=== PATIENT | male | born 1960 | race Caucasian/White ===

== ENCOUNTER → 2020-09-13 10:01 | Outpatient (CLI) | payer OTHER, SELFPAY ==
--- NOTE | 2020-09-13 | DI.NM.S_ITS ---
PROCEDURE: NM IGNACIO PERF SPECT REST & STR Rest and exercise myocardial perfusion SPECT with gated imaging and ejection fraction RADIOPHARMACEUTICAL: 25.1 mCi Tc-99m sestamibi IV at rest and 26.5 mCi Tc-99m sestamibi IV at peak exercise. A two day-protocol was performed. INDICATIONS: Other chest pain TECHNIQUE: Radiopharmaceutical was injected at peak stress test, and also at rest. SPECT images were obtained. SPECT myocardial perfusion images were displayed in short axis, horizontal long axis, and vertical long axis views. Gated images were reviewed using [employer] software. COMPARISON: None. CARDIAC STRESS: A standard Vin treadmill exercise tolerance test was performed by the patient under the supervision of an attending staff. The patient exercised for 5 minutes and 46 seconds; functional aerobic impairment (VANESSA) is +27%. Hemodynamic data: There is normal heart rate response to exercise stress. Patient achieved 93% of maximum predicted heart rate at peak exercise. Hypertension at rest (BP 142/100mmHg) and max BP is 210/100mg. Symptoms: Patient denied chest pain during exercise. EKG: No diagnostic EKG changes of ischemia; no ectopy. FINDINGS: Raw data: There is good myocardial labeling by radiotracer. No significant motion artifacts. Left ventricle function: Gated images demonstrate normal left ventricle wall thickening. No segmental wall motion abnormality. No transient ischemic dilation; TID is 0.81 (normal less than 1.3). The left ventricle resting end-diastolic volume is 129 mL. Left ventricle stress ejection fraction is 69%; normal values are above 45%. Myocardial perfusion: There is a fixed inferior wall defect that resolves with prone imaging, suggesting artifact than true ischemia or infarction. IMPRESSION: Low risk, probably normal treadmill nuclear stress test 1) No perfusion evidence of ischemia or infarction. 2) Normal left ventricular size, wall motion, and systolic function (EF post stress 69%). 3) No ECG evidence of ischemia. 4) No angina during the study. 5) Reduced exercise tolerance (7.0 METs, VANESSA +27%). Target heart rate achieved. 6) Hypertensive response to exercise. Hypertension at rest (BP 142/100mmHg) and max BP was 210/100mg. 7) No prior nuclear stress test available for comparison. Dictated by: Judith Darling MD on 09/14/2020 at 16:39 Approved by: Judith Darling MD on 09/14/2020 at 16:53
== END ==
PROVIDERS: PCP Internal Medicine; Referring Provider Internal Medicine; Visit Provider Internal Medicine
DX: R07.89 Other chest pain (principal); R06.09 Other forms of dyspnea
CPT/HCPCS: 78452; 93017; A9502

== ENCOUNTER 2021-04-25 12:34 | Emergency (ER) | payer OTHER, SELFPAY ==
--- NOTE | 2021-04-25 13:31 | DI.RAD.S_ITS ---
PROCEDURE: XR CHEST 2V INDICATIONS: shortness of breath TECHNIQUE: 2 views of the chest were acquired. COMPARISON: None. FINDINGS: Surgical changes and devices: None. Lungs and pleura: Lungs are clear. No pleural effusions or pneumothorax. Mediastinum: Mediastinal contours are normal. Heart size is normal. Bones and chest wall: No suspicious bony abnormalities. Soft tissues appear unremarkable. IMPRESSION: No acute pulmonary process. Dictated by: Nae Ochoa M.D. on 04/25/2021 at 14:23 Approved by: Nae Ochoa M.D. on 04/25/2021 at 14:27
[2021-04-25 13:32] VITALS: BP 168/108; PULSE 94; RESP 22; TEMP 37.1; O2SAT 96
[2021-04-25 13:44] LABS: Add Manual Diff / Slide Review NO; Basophils Absolute Auto 100 /uL (0-100); Basophils Percent Auto 0.8 % (0-2); Eosinophils Absolute Auto 300 /uL (0-450); Hematocrit 45.3 % (41-53); Hemoglobin 15.4 g/dL (13.5-17.5); Lymphocytes Absolute Auto 1400 /uL (1100-4500); Lymphocytes Percent Auto 21.2 % (25-40); Mean Corpuscular HGB Conc 33.9 % (30-36); Mean Corpuscular Volume 97.3 fL (80-100); Monocytes Absolute Auto 1300 /uL (0-900); Neutrophils Absolute Auto 3500 /uL (1500-7000); Platelet Count 191 X10^3/uL (150-400); Red Blood Cell Count 4.66 X10^6/uL (4.5-5.9); Red Cell Distribution Width 13.1 % (11.6-14.8); White Blood Cell Count 6.6 X10^3/uL (4.5-11.0)
[2021-04-25 13:59] LABS: Alanine Aminotransferase 72 IU/L (<50); Albumin 4.2 g/dL (3.5-5.0); Albumin Globulin Ratio 1.2 (1.0-2.8); Alkaline Phosphatase 85 U/L (38-126); Aspartate Aminotransferase 80 IU/L (17-59); BUN Creatinine Ratio 12.7 (6-22); Blood Urea Nitrogen 13 mg/dL (9-20); Calcium 9.1 mg/dL (8.4-10.2); Carbon Dioxide 29 mmol/L (22-32); Chloride 104 mmol/L (98-107); Estimated Glomerular Filt Rate > 60.0 mL/min (>60); Globulin 3.4 g/dL (1.7-4.1); Glucose 110 mg/dL (80-110); HEMOLYSIS < 15 (0-50); Potassium 4.1 mmol/L (3.4-5.1); Sodium 140 mmol/L (137-145); Total Protein 7.6 g/dL (6.3-8.2)
[2021-04-25 14:33] LABS: Adenovirus Not Detected (Not Detect); B. parapertussis Not Detected (Not Detecte); Bordetella pertussis Not Detected (Not Detecte); Chlamydophila pneumoniae Not Detected (Not Detect); Coronavirus 229E Not Detected (Not Detect); Coronavirus HKU1 Not Detected (Not Detect); Coronavirus NL 63 Not Detected (Not Detect); Coronavirus OC43 Not Detected (Not Detect); Human Metapneumovirus Not Detected (Not Detect); Human Rhinovirus/Enterovirus Not Detected (Not Detect); Influenza A Not Detected (Not Detect); Influenza B Not Detected (Not Detect); Mycoplasma pneumoniae Not Detected (Not Detect); Parainfluenza Virus 1 Not Detected (Not Detect); Parainfluenza Virus 2 Not Detected (Not Detect); Parainfluenza Virus 3 Not Detected (Not Detect); Parainfluenza Virus 4 Not Detected (Not Detect); Respiratory Syncytial Virus Not Detected (Not Detect); SARS- CoV-2 Not Detected (Not Detecte)
--- NOTE | 2021-04-25 16:18 | ED_ITS ---
HPI - URI/Sore Throat <CUONG Wolf - Last Filed: 04/25/21 20:46> General Chief Complaint: Upper Respiratory Symptoms Stated Complaint: coughing, loss of voice, RT eye hurts Time Seen by Provider: 04/25/21 16:18 Source: patient Mode of arrival: Ambulatory History of Present Illness HPI Narrative: 60-year-old male presents to the emergency department for 4 weeks of cough and congestion which has been worsening. Patient reports for the first 3 weeks it was a dry cough and now it is turned into a productive cough with yellow/white sputum. Patient has a history of high blood pressure, he is not a smoker, no history of asthma, reports having orthopnea symptoms including elevated. Patient has lost his voice in the last 3 days and now has 3 days of right eye redness, discharge, he denies any trauma or foreign body to his right eye. He reports that his cough is his worst symptom, and it has been ongoing and quite bothersome. Related Data Previous Rx's Medication Instructions Recorded benzonatate 100 mg capsule 100 mg PO TID PRN #20 cap 04/25/21 Allergies Allergy/AdvReac Type Severity Reaction Status Date / Time No Known Drug Allergies Allergy Verified 04/25/21 16:46 Review of Systems <CUONG Wolf - Last Filed: 04/25/21 20:46> Review of Systems Narrative: General: denies fever, chills Head/Neck: denies headache, neck pain, denies any swallowing difficulty or throat pain Eyes: denies visual changes, eye pain Cardio: denies chest pain, palpitations, denies chest pressure, denies shortness of breath with activity Respiratory: denies shortness of breath, endorses frequent and bothersome cough, loss of voice, GI: denies abdominal pain, nausea, vomiting, or diarrhea : denies dysuria, hematuria MSK: denies joint pain, muscle weakness Skin: denies rash, itching Neuro: denies numbness, tingling Exam <CUONG Wolf - Last Filed: 04/25/21 20:46> Narrative Exam Narrative: Independently reviewed vitals signs and nursing notes. General: Awake, alert, nontoxic, no cardiorespiratory distress Head/Neck: Atraumatic, neck full range of motion Eyes: EOMI, conjunctiva normal Nose: nares patent, no rhinorrhea Mouth/Throat: moist mucus membranes, posterior pharynx normal, no oral lesions Cardio: Regular rate and rhythm, no peripheral edema Respiratory: respirations unlabored without wheezing, stridor, or rales. No ret ractions. Frequent cough, no sputum visualized, GI: Abdomen soft, nontender, obese MSK: Moves all extremities, neurovascularly intact Skin: Normal capillary refill, no rash Neuro: Normal speech and cognition, normal gait Initial Vital Signs Initial Vital Signs: Vital Signs Temperature 98.8 F 04/25/21 13:32 Pulse Rate 94 H 04/25/21 13:32 Respiratory Rate 22 04/25/21 13:32 Blood Pressure 168/108 H 04/25/21 13:32 Pulse Oximetry 96 04/25/21 13:32 <Rafat Anderson DO - Last Filed: 05/03/21 04:46> Initial Vital Signs Initial Vital Signs: Vital Signs Temperature 98.8 F 04/25/21 13:32 Pulse Rate 94 H 04/25/21 13:32 Respiratory Rate 22 04/25/21 13:32 Blood Pressure 168/108 H 04/25/21 13:32 Pulse Oximetry 96 04/25/21 13:32 Course <LOLITA WolfP - Last Filed: 04/25/21 20:46> Orders Ordered: Discontinued Medications Doxycycline Hyclate (Doxycycline Hyclate 100 Mg Tablet) 100 mg PO NOW ONE Stop: 04/25/21 16:40 Last Admin: 04/25/21 16:47 Dose: 100 mg Documented by: GABBY Guaifenesin/Dextromethorphan (Guaifenesin/Dm 200/20 Mg/10 Ml Udc) 10 ml PO NOW ONE Stop: 04/25/21 16:40 Last Admin: 04/25/21 16:51 Dose: 10 ml Documented by: GABBY Vital Signs Vital signs: Vital Signs - 8 hr 04/25/21 13:32 04/25/21 17:00 Temperature 98.8 F Pulse Rate 94 H 78 Respiratory Rate 22 20 Blood Pressure 168/108 H 157/97 H Pulse Oximetry 96 94 <Rafat Anderson DO - Last Filed: 05/03/21 04:46> Orders Ordered: Discontinued Medications Doxycycline Hyclate (Doxycycline Hyclate 100 Mg Tablet) 100 mg PO NOW ONE Stop: 04/25/21 16:40 Last Admin: 04/25/21 16:47 Dose: 100 mg Documented by: GABBY Guaifenesin/Dextromethorphan (Guaifenesin/Dm 200/20 Mg/10 Ml Udc) 10 ml PO NOW ONE Stop: 04/25/21 16:40 Last Admin: 04/25/21 16:51 Dose: 10 ml Documented by: GABBY Vital Signs Vital signs: Vital Signs - 8 hr 04/25/21 13:32 04/25/21 17:00 Temperature 98.8 F Pulse Rate 94 H 78 Respiratory Rate 22 20 Blood Pressure 168/108 H 157/97 H Pulse Oximetry 96 94 MDM - URI/Sore Throat <CUONG Wolf - Last Filed: 04/25/21 20:46> Lab Data Result diagrams: 04/25/21 13:31 04/25/21 13:31 Labs: Lab Results 04/25/21 04/25/21 04/25/21 Range/Units 13:31 13:31 13:31 WBC 6.6 (4.5-11.0) X10^3/uL RBC 4.66 (4.5-5.9) X10^6/uL Hgb 15.4 (13.5-17.5) g/dL Hct 45.3 (41-53) % MCV 97.3 (80-100) fL MCH 33.0 (26-34) PG MCHC 33.9 (30-36) % RDW 13.1 (11.6-14.8) % Plt Count 191 (150-400) X10^3/uL Neut % (Auto) 53.0 (50-75) % Lymph % (Auto) 21.2 L (25-40) % Story % (Auto) 20.0 H (3-14) % Eos % (Auto) 5.0 H (2-4) % Baso % (Auto) 0.8 (0-2) % Neut # (Auto) 3500 (5064-2637) /uL Lymph # (Auto) 1400 (4662-7863) /uL Story # (Auto) 1300 H (0-900) /uL Eos # (Auto) 300 (0-450) /uL Baso # (Auto) 100 (0-100) /uL Sodium 140 (137-145) mmol/L Potassium 4.1 (3.4-5.1) mmol/L Chloride 104 (98-107) mmol/L Carbon Dioxide 29 (22-32) mmol/L BUN 13 (9-20) mg/dL Creatinine 1.02 (0.66-1.25) mg/dL Estimated GFR > 60.0 (>60) mL/min BUN/Creatinine Ratio 12.7 (6-22) Glucose 110 (80-110) mg/dL Lactate Cancelled Calcium 9.1 (8.4-10.2) mg/dL Total Bilirubin 1.0 (0.2-1.3) mg/dL AST 80 H (17-59) IU/L ALT 72 H (<50) IU/L Alkaline Phosphatase 85 (38-126) U/L Total Protein 7.6 (6.3-8.2) g/dL Albumin 4.2 (3.5-5.0) g/dL Globulin 3.4 (1.7-4.1) g/dL Albumin/Globulin Ratio 1.2 (1.0-2.8) Chlamy pneumoniae PCR (Not Detect) Adenovirus (PCR) (Not Detect) B. pertussis DNA (PCR) (Not Detecte) B.parapertussis DNA PCR (Not Detecte) Coronavirus OC43 (PCR) (Not Detect) Coronavirus HKU1 (PCR) (Not Detect) Coronavirus 229E (PCR) (Not Detect) SARS-CoV-2 (PCR) (Not Detecte) Coronavirus NL63 (PCR) (Not Detect) Human Metapneumovir PCR (Not Detect) Influenza Type A (PCR) (Not Detect) Influenza Type B (PCR) (Not Detect) M. pneumoniae (PCR) (Not Detect) Parainfluenza 1 (PCR) (Not Detect) Parainfluenza 2 (PCR) (Not Detect) Parainfluenza 3 (PCR) (Not Detect) Parainfluenza 4 (PCR) (Not Detect) RSV (PCR) (Not Detect) Entero/Rhino (PCR) (Not Detect) 04/25/21 Range/Units 13:31 WBC (4.5-11.0) X10^3/uL RBC (4.5-5.9) X10^6/uL Hgb (13.5-17.5) g/dL Hct (41-53) % MCV (80-100) fL MCH (26-34) PG MCHC (30-36) % RDW (11.6-14.8) % Plt Count (150-400) X10^3/uL Neut % (Auto) (50-75) % Lymph % (Auto) (25-40) % Story % (Auto) (3-14) % Eos % (Auto) (2-4) % Baso % (Auto) (0-2) % Neut # (Auto) (5822-1118) /uL Lymph # (Auto) (9089-8044) /uL Story # (Auto) (0-900) /uL Eos # (Auto) (0-450) /uL Baso # (Auto) (0-100) /uL Sodium (137-145) mmol/L Potassium (3.4-5.1) mmol/L Chloride (98-107) mmol/L Carbon Dioxide (22-32) mmol/L BUN (9-20) mg/dL Creatinine (0.66-1.25) mg/dL Estimated GFR (>60) mL/min BUN/Creatinine Ratio (6-22) Glucose (80-110) mg/dL Lactate Calcium (8.4-10.2) mg/dL Total Bilirubin (0.2-1.3) mg/dL AST (17-59) IU/L ALT (<50) IU/L Alkaline Phosphatase (38-126) U/L Total Protein (6.3-8.2) g/dL Albumin (3.5-5.0) g/dL Globulin (1.7-4.1) g/dL Albumin/Globulin Ratio (1.0-2.8) Chlamy pneumoniae PCR Not detected (Not Detect) Adenovirus (PCR) Not detected (Not Detect) B. pertussis DNA (PCR) Not detected (Not Detecte) B.parapertussis DNA PCR Not detected (Not Detecte) Coronavirus OC43 (PCR) Not detected (Not Detect) Coronavirus HKU1 (PCR) Not detected (Not Detect) Coronavirus 229E (PCR) Not detected (Not Detect) SARS-CoV-2 (PCR) Not detected (Not Detecte) Coronavirus NL63 (PCR) Not detected (Not Detect) Human Metapneumovir PCR Not detected (Not Detect) Influenza Type A (PCR) Not detected (Not Detect) Influenza Type B (PCR) Not detected (Not Detect) M. pneumoniae (PCR) Not detected (Not Detect) Parainfluenza 1 (PCR) Not detected (Not Detect) Parainfluenza 2 (PCR) Not detected (Not Detect) Parainfluenza 3 (PCR) Not detected (Not Detect) Parainfluenza 4 (PCR) Not detected (Not Detect) RSV (PCR) Not detected (Not Detect) Entero/Rhino (PCR) Not detected (Not Detect) Imaging Data Chest x-ray: Radiologist's Impression: PROCEDURE:? XR CHEST 2V ? INDICATIONS:? shortness of breath ? TECHNIQUE:? 2 views of the chest were acquired.? ? COMPARISON:? None. ? FINDINGS:? ? Surgical changes and devices:? None.? ? Lungs and pleura:? Lungs are clear.? No pleural effusions or pneumothorax.? ? Mediastinum:? Mediastinal contours are normal.? Heart size is normal.? ? Bones and chest wall:? No suspicious bony abnormalities.? Soft tissues appear unremarkable.? ? IMPRESSION:? No acute pulmonary process. ? ? Dictated by: Nae Ochoa M.D. on 04/25/2021 at 14:23 ? ? Approved by: Nae Ochoa M.D. on 04/25/2021 at 14:27 ? ECG Data Interpretation: No STEMI, ST segment changes, arrhythmia, or acute ischemic changes. With normal sinus rhythm, ventricular rate of 73, no ST elevation, no ST changes, no arrhythmia MDM Narrative Medical decision making narrative: 60-year-old male presents to the emergency department with history of 4 weeks of cough, 3 days of right eye tearing, discharge, and pink eye. Lab work was unremarkable, respiratory panel was negative for all tested viruses, x-ray was negative for pulmonary opacities or acute cardiopulmonary process. Patient is without nausea or vomiting, fever, shortness of breath, wheezing, history of sleep apnea, or any significant cardiac history. I opted to treat this patient for bronchitis as he has had 4 weeks of symptoms, chest x-ray without any patchy opacities, or signs of pneumonia, as well as right eye conjunctivitis. On exam patient was without any abnormal breath sounds, without hypoxia, he has lost his voice, but did not have stridor, wheezing, or any concerning breath sounds. He was prescribed guaifenesin with codeine for his cough, Tessalon Perles, polymyxin B eyedrops and doxycycline for bronchitis for symptoms over 4 weeks. Patient is appropriate and amenable to discharge home. Vital signs are stable on repeat examination is unremarkable. Patient has been informed of results. Patient has been given strict return to ER precautions for any new or worsening symptoms. Patient understands to follow up closely with outpatient providers as instructed. Patient understands plan and agrees to discharge home. All questions and concerns answered at this time. <Rafat Anderson DO - Last Filed: 05/03/21 04:46> Lab Data Labs: Lab Results 04/25/21 04/25/21 04/25/21 Range/Units 13:31 13:31 13:31 WBC 6.6 (4.5-11.0) X10^3/uL RBC 4.66 (4.5-5.9) X10^6/uL Hgb 15.4 (13.5-17.5) g/dL Hct 45.3 (41-53) % MCV 97.3 (80-100) fL MCH 33.0 (26-34) PG MCHC 33.9 (30-36) % RDW 13.1 (11.6-14.8) % Plt Count 191 (150-400) X10^3/uL Neut % (Auto) 53.0 (50-75) % Lymph % (Auto) 21.2 L (25-40) % Story % (Auto) 20.0 H (3-14) % Eos % (Auto) 5.0 H (2-4) % Baso % (Auto) 0.8 (0-2) % Neut # (Auto) 3500 (8524-2168) /uL Lymph # (Auto) 1400 (1908-7648) /uL Story # (Auto) 1300 H (0-900) /uL Eos # (Auto) 300 (0-450) /uL Baso # (Auto) 100 (0-100) /uL Sodium 140 (137-145) mmol/L Potassium 4.1 (3.4-5.1) mmol/L Chloride 104 (98-107) mmol/L Carbon Dioxide 29 (22-32) mmol/L BUN 13 (9-20) mg/dL Creatinine 1.02 (0.66-1.25) mg/dL Estimated GFR > 60.0 (>60) mL/min BUN/Creatinine Ratio 12.7 (6-22) Glucose 110 (80-110) mg/dL Lactate Cancelled Calcium 9.1 (8.4-10.2) mg/dL Total Bilirubin 1.0 (0.2-1.3) mg/dL AST 80 H (17-59) IU/L ALT 72 H (<50) IU/L Alkaline Phosphatase 85 (38-126) U/L Total Protein 7.6 (6.3-8.2) g/dL Albumin 4.2 (3.5-5.0) g/dL Globulin 3.4 (1.7-4.1) g/dL Albumin/Globulin Ratio 1.2 (1.0-2.8) Chlamy pneumoniae PCR (Not Detect) Adenovirus (PCR) (Not Detect) B. pertussis DNA (PCR) (Not Detecte) B.parapertussis DNA PCR (Not Detecte) Coronavirus OC43 (PCR) (Not Detect) Coronavirus HKU1 (PCR) (Not Detect) Coronavirus 229E (PCR) (Not Detect) SARS-CoV-2 (PCR) (Not Detecte) Coronavirus NL63 (PCR) (Not Detect) Human Metapneumovir PCR (Not Detect) Influenza Type A (PCR) (Not Detect) Influenza Type B (PCR) (Not Detect) M. pneumoniae (PCR) (Not Detect) Parainfluenza 1 (PCR) (Not Detect) Parainfluenza 2 (PCR) (Not Detect) Parainfluenza 3 (PCR) (Not Detect) Parainfluenza 4 (PCR) (Not Detect) RSV (PCR) (Not Detect) Entero/Rhino (PCR) (Not Detect) 04/25/21 Range/Units 13:31 WBC (4.5-11.0) X10^3/uL RBC (4.5-5.9) X10^6/uL Hgb (13.5-17.5) g/dL Hct (41-53) % MCV (80-100) fL MCH (26-34) PG MCHC (30-36) % RDW (11.6-14.8) % Plt Count (150-400) X10^3/uL Neut % (Auto) (50-75) % Lymph % (Auto) (25-40) % Story % (Auto) (3-14) % Eos % (Auto) (2-4) % Baso % (Auto) (0-2) % Neut # (Auto) (8629-3726) /uL Lymph # (Auto) (9423-8859) /uL Story # (Auto) (0-900) /uL Eos # (Auto) (0-450) /uL Baso # (Auto) (0-100) /uL Sodium (137-145) mmol/L Potassium (3.4-5.1) mmol/L Chloride (98-107) mmol/L Carbon Dioxide (22-32) mmol/L BUN (9-20) mg/dL Creatinine (0.66-1.25) mg/dL Estimated GFR (>60) mL/min BUN/Creatinine Ratio (6-22) Glucose (80-110) mg/dL Lactate Calcium (8.4-10.2) mg/dL Total Bilirubin (0.2-1.3) mg/dL AST (17-59) IU/L ALT (<50) IU/L Alkaline Phosphatase (38-126) U/L Total Protein (6.3-8.2) g/dL Albumin (3.5-5.0) g/dL Globulin (1.7-4.1) g/dL Albumin/Globulin Ratio (1.0-2.8) Chlamy pneumoniae PCR Not detected (Not Detect) Adenovirus (PCR) Not detected (Not Detect) B. pertussis DNA (PCR) Not detected (Not Detecte) B.parapertussis DNA PCR Not detected (Not Detecte) Coronavirus OC43 (PCR) Not detected (Not Detect) Coronavirus HKU1 (PCR) Not detected (Not Detect) Coronavirus 229E (PCR) Not detected (Not Detect) SARS-CoV-2 (PCR) Not detected (Not Detecte) Coronavirus NL63 (PCR) Not detected (Not Detect) Human Metapneumovir PCR Not detected (Not Detect) Influenza Type A (PCR) Not detected (Not Detect) Influenza Type B (PCR) Not detected (Not Detect) M. pneumoniae (PCR) Not detected (Not Detect) Parainfluenza 1 (PCR) Not detected (Not Detect) Parainfluenza 2 (PCR) Not detected (Not Detect) Parainfluenza 3 (PCR) Not detected (Not Detect) Parainfluenza 4 (PCR) Not detected (Not Detect) RSV (PCR) Not detected (Not Detect) Entero/Rhino (PCR) Not detected (Not Detect) Discharge Plan Departure Patient Disposition: Home Clinical Impression: Upper respiratory infection, Bronchitis, Laryngitis Conjunctivitis Qualifiers: Conjunctivitis type: acute Acute conjunctivitis type: unspecified Laterality: right Qualified Code(s): H10.31 - Unspecified acute conjunctivitis, right eye Instructions: Laryngitis, DI for Conjunctivitis, DI for Acute Bronchitis Activity Restrictions/Additional Instructions: *You have been diagnosed with bronchitis, and upper respiratory infection which tested negative for COVID, influenza, RSV, and all other tested viruses. This could still be a viral infection but this far out is most likely to be bacterial. Your x-ray did not have any evidence of pneumonia which is great news. I have called in prescriptions to [facility] in [place], please follow- up with your primary care provider if you are not getting better soon. *What to do: *Please continue to take your regular medications as directed. [x ] New medication prescriptions sent to your pharmacy: [ [facility]] [ ] New medication written as a paper prescription [ ] No new medications given *Please follow up with your primary care provider in 2-3 days, call for an appointment. Let them know you were seen in the Emergency Department and that we ask that you be seen in follow up. We will electronically transmit a record of today's note if your PCP is in our system *If you do not have a primary care provider please contact the [facility] line at [phone]. They will ask some questions about your medical history and help get you set up with a doctor in the community. *Return to Emergency Department if you should have any new, worsening or concerning symptoms, such as [fever greater than 101F, chills, worsening pain, persistent vomiting or other bothersome symptoms] Prescriptions: New benzonatate 100 mg capsule 100 mg PO TID PRN (Reason: cough) Qty: 20 0RF Referrals: Man Melgoza MD [Primary Care Provider] - <DO Cathy Mcrae Last Filed: 05/03/21 04:46> Cosign ED Attending Cosignature Attestation: I was immediately available in the department for consultation. This documentation has been reviewed and I agree with assessment and plan. Supervised by Rafat Anderson DO
[2021-04-25] MEDS: DOXYCYCLINE HYCLATE 100 MG TABLET PO (16:47)
[2021-04-25] MEDS: GUAIFENESIN/DM 200/20 MG/10 ML UDC PO (16:51)
[2021-04-25 17:00] VITALS: BP 157/97; PULSE 78; RESP 20; O2SAT 94
== END 2021-04-25 17:00 | disposition home or self-care (01) ==
PROVIDERS: Emergency Medicine; Emergency Provider Nurse Practitioner Critical Care Medicine; PCP Internal Medicine
DX: J20.9 Acute bronchitis, unspecified (principal); J04.0 Acute laryngitis; H10.31 Unspecified acute conjunctivitis, right eye; R03.0 Elevated blood-pressure reading, without diagnosis of hypertension
CPT/HCPCS: 71046; 80053; 85025; 87633; 93005; 93010; 99283; 99284

== ENCOUNTER → 2022-12-30 10:14 | Outpatient (CLI) | payer OTHER, SELFPAY ==
--- NOTE | 2022-12-30 | DI.RAD.S_ITS ---
PROCEDURE: FL JOINT INJECTION LARGE RT INDICATIONS: Unilateral primary osteoarthritis, right hip COMPARISON: None. TECHNIQUE: The indications, alternatives, benefits, risks, and complications of the procedure were explained to the patient. Written informed consent was obtained and placed in the chart. The patient was placed in an appropriate position on the fluoroscopy table, and a site was chosen for percutaneous access under fluoroscopic guidance. The site was prepped and draped in a sterile fashion. Local anesthetic was administered using a 1% lidocaine solution. A hypodermic or spinal needle was then used to access the symptomatic joint. Intra-articular location of the needle tip was confirmed by injecting a small amount of contrast, followed by steroid administration. The needle was then withdrawn, and a bandage applied to the puncture site. FINDINGS: Joint injected: Right hip Medications injected: 5 mL of 40 mg/mL Kenalog and 0.5% Ropivacaine mixture. Patient's pain before injection: 5 out of 10. Patient's pain after injection: 1 out of 10. Complications: None. IMPRESSION: Successful fluoroscopically guided administration of steroid and anaesthetic solution into the right hip joint. Dictated by: Marquis Petty M.D. on 12/30/2022 at 13:08 Approved by: Marquis Petty M.D. on 12/30/2022 at 13:11
[2022-12-30] MEDS: LIDOCAINE 1% 20 ML INJ (12:20)
[2022-12-30] MEDS: ROPIVACAINE 0.5% PF 5 MG/ML 20ML VIAL 3 ML INJ (12:20)
[2022-12-30] MEDS: TRIAMCINOLONE 40 MG/ML VIAL INTRA-ARTI (12:21)
== END ==
PROVIDERS: PCP Internal Medicine; Referring Provider Physician Assistant Surgical; Visit Provider Physician Assistant Surgical
DX: M16.11 Unilateral primary osteoarthritis, right hip (principal)
CPT/HCPCS: 20610; 77002

== ENCOUNTER → 2023-07-22 10:03 | Outpatient (CLI) | payer OTHER, SELFPAY ==
--- NOTE | 2023-07-22 10:05 | DI.RAD.S_ITS ---
PROCEDURE: FL JOINT INJECTION MEDIUM RT INDICATIONS: Primary osteoarthritis, right shoulder COMPARISON: [facility], , [place] JOINT INJECTION LARGE RT, 12/30/2022, 10:49. TECHNIQUE: The indications, alternatives, benefits, risks, and complications of the procedure were explained to the patient. Written informed consent was obtained and placed in the chart. The patient was placed in an appropriate position on the fluoroscopy table, and a site was chosen for percutaneous access under fluoroscopic guidance. The site was prepped and draped in a sterile fashion. Local anesthetic was administered using a 1% lidocaine solution. A hypodermic or spinal needle was then used to access the symptomatic joint. Intra-articular location of the needle tip was confirmed by injecting a small amount of contrast, followed by steroid administration. The needle was then withdrawn, and a bandage applied to the puncture site. FINDINGS: Joint injected: Right shoulder Medications injected: 4 mL of 40 mg/mL Kenalog and 0.5% Ropivacaine mixture. Patient's pain before injection: 1/8 out of 10. (1 at rest, 8 with motion) Patient's pain after injection: 0/0 out of 10. Complications: None. IMPRESSION: Successful fluoroscopically guided administration of steroid and anaesthetic solution into the right shoulder joint. Dictated by: Bertin Reyna M.D. on 07/22/2023 at 13:01 Approved by: Bertin Reyna M.D. on 07/22/2023 at 13:02
[2023-07-22] MEDS: LIDOCAINE 1% 20 ML INJ (13:36)
[2023-07-22] MEDS: ROPIVACAINE 0.5% PF 5 MG/ML 20ML VIAL 20 ML INJ (13:36)
[2023-07-22] MEDS: TRIAMCINOLONE 40 MG/ML VIAL INTRA-ARTI (13:37)
== END ==
PROVIDERS: PCP Internal Medicine; Referring Provider Physician Assistant Surgical; Visit Provider Physician Assistant Surgical
DX: M19.011 Primary osteoarthritis, right shoulder (principal)
CPT/HCPCS: 20605; 20610; 77002; Q9967

== ENCOUNTER → 2023-10-14 09:27 | Outpatient (CLI) | payer OTHER, SELFPAY ==
--- NOTE | 2023-10-14 09:28 | DI.RAD.S_ITS ---
PROCEDURE: FL JOINT INJECTION LARGE LT INDICATIONS: Unilateral primary osteoarthritis, left hip COMPARISON: [facility], [place], [place] JOINT INJECTION LARGE RT, 07/22/2023, 9:29. TECHNIQUE: The indications, alternatives, benefits, risks, and complications of the procedure were explained to the patient. Written informed consent was obtained and placed in the chart. The patient was placed in an appropriate position on the fluoroscopy table, and a site was chosen for percutaneous access under fluoroscopic guidance. The site was prepped and draped in a sterile fashion. Local anesthetic was administered using a 1% lidocaine solution. A hypodermic or spinal needle was then used to access the symptomatic joint. Intra-articular location of the needle tip was confirmed by injecting a small amount of contrast, followed by steroid administration. The needle was then withdrawn, and a bandage applied to the puncture site. FINDINGS: Joint injected: Left hip Medications injected: 6 mL of 40 mg/mL Kenalog and 0.5% Ropivacaine mixture. Patient's pain before injection: 5 out of 10. Patient's pain after injection: 2 out of 10. Complications: None. IMPRESSION: Successful fluoroscopically guided administration of steroid and anaesthetic solution into the left hip joint. Dictated by: Chano Hayes M.D. on 10/14/2023 at 10:29 Approved by: Chano Hayes M.D. on 10/14/2023 at 10:30
[2023-10-14] MEDS: ROPIVACAINE 0.5% PF 5 MG/ML 20ML VIAL 20 ML INJ (10:05)
[2023-10-14] MEDS: LIDOCAINE 1% 20 ML INJ (10:05)
[2023-10-14] MEDS: TRIAMCINOLONE 40 MG/ML VIAL INTRA-ARTI (10:06)
== END ==
PROVIDERS: PCP Internal Medicine; Referring Provider Physician Assistant Surgical; Visit Provider Physician Assistant Surgical
DX: M16.12 Unilateral primary osteoarthritis, left hip (principal)
CPT/HCPCS: 20610; 77002

== ENCOUNTER → 2025-02-25 07:49 | Outpatient (CLI) | payer MEDICARE, OTHER, SELFPAY ==
--- NOTE | 2025-02-25 07:51 | DI.MRI.S_ITS ---
PROCEDURE: MR CERVICAL SPINE WO CON
== END ==
LOC: MRI 07:51
PROVIDERS: PCP Physician Assistant Surgical; Referring Provider Physician Assistant Surgical; Visit Provider Physician Assistant Surgical
DX: M47.812 Spondylosis without myelopathy or radiculopathy, cervical region (principal); M48.02 Spinal stenosis, cervical region
CPT/HCPCS: 72141